=== PATIENT | female | born 1950 | race Caucasian/White ===

== ENCOUNTER → 2019-11-26 | Outpatient (CLI) | payer OTHER, MEDICARE ==
[~2019-11-26] MED LIST: OMNIPAQUE 350 MG/ML, 150 ML BOTTLE ONE
== END | disposition home or self-care (01) ==
LOC: CFH 08:49
PROVIDERS: ATTEND Internal Medicine Cardiovascular Disease
DX: I51.7 Cardiomegaly (principal); I48.91 Unspecified atrial fibrillation
CPT/HCPCS: 71046; 75572; Q9967

== ENCOUNTER 2019-12-02 06:25 | Inpatient (IN) | payer OTHER, MEDICARE ==
[~2019-12-02] VITALS: Ht 157.5 cm; Wt 58.7 kg
[2019-12-02] MEDS ORDERED: SODIUM CHLORIDE 0.9% 1,000 ML IV SCH (06:52)
[2019-12-02] MEDS ORDERED: LIDOCAINE 1%, 20ML ONE (06:55)
[2019-12-02] MEDS ORDERED: SODIUM CHLORIDE 0.9% 1,000 ML IV ONE (07:00)
[2019-12-02] MEDS ORDERED: METO25TA91 PO (07:06)
[2019-12-02] MEDS ORDERED: RIVA20TA PO (07:06)
[2019-12-02] MEDS ORDERED: FLEC150T PO (07:06)
[2019-12-02 07:09] VITALS: BP 121/61
[2019-12-02] MEDS ORDERED: HEPARIN 1,000 UNITS/ML, 30ML ONE (08:36)
[2019-12-02] MEDS ORDERED: ONDANSETRON 2MG/ML, 2ML ONE (08:36)
[2019-12-02] MEDS ORDERED: ROCURONIUM 10 MG/ML,10ML ONE (08:36)
[2019-12-02] MEDS ORDERED: MIDAZOLAM 1 MG/ML, 2ML ONE (08:40)
[2019-12-02] MEDS ORDERED: FENTANYL PF 250 MCG/5ML ONE (08:41)
[2019-12-02] MEDS ORDERED: DEXAMETHASONE 4 MG/ML, 1ML ONE ×2 (08:42→11:47)
[2019-12-02] MEDS ORDERED: PROPOFOL 10 MG/ML, 20ML ONE (11:47)
[2019-12-02] MEDS ORDERED: RIVAROXABAN 20 MG TABLET PO ONE (13:41)
[2019-12-02] MEDS: OMEPRAZOLE 20 MG CAPSULE.DR PO SCH (16:00)
[2019-12-02 20:00] VITALS: BP 92/57
[2019-12-02] MEDS: COLCHICINE 0.6 MG CAPSULE PO SCH (20:12)
[2019-12-02 23:02] VITALS: BP 104/63
[2019-12-03] VITALS (10 sets, daily range): BP systolic 78–111; BP diastolic 49–75
[2019-12-03] MEDS: OMEPRAZOLE 20 MG CAPSULE.DR PO SCH ×2 (05:45→16:08)
[2019-12-03 06:27] LABS: CREATININE 0.75 mg/dL (0.55-1.02)
[2019-12-03] MEDS ORDERED: SOTALOL 80MG TABLET PO SCH (08:30)
[2019-12-03] MEDS: COLCHICINE 0.6 MG CAPSULE PO SCH ×2 (08:35→20:32)
[2019-12-03] MEDS: RIVAROXABAN 20 MG TABLET PO SCH (08:35)
[2019-12-03] MEDS ORDERED: SODIUM CHLORIDE 0.9%, 250ML IVBOLUS ONE (10:30)
[2019-12-03] MEDS: ACETAMINOPHEN 325 MG TABLET PO PRN (13:14)
[2019-12-03] MEDS ORDERED: KETOROLAC 30 MG/1 ML IVPush ONE (16:00)
[2019-12-03] MEDS ORDERED: ALUMINUM/MAG/SIMETHICONE 30 ML UDC PO PRN (16:00)
[2019-12-03] MEDS: SOTALOL 120MG TABLET PO SCH (20:32)
[2019-12-04 00:53] VITALS: BP 96/59
[2019-12-04] MEDS: ZOLPIDEM 5MG TABLET PO PRN ×2 (00:56→21:13)
[2019-12-04 05:13] LABS: BASOPHILS # (AUTO) 0.03 x10^3/uL (0-0.1); BASOPHILS % (AUTO) 0 % (0-1); EOSINOPHILS # (AUTO) 0.05 x10^3/uL (0-0.4); EOSINOPHILS % (AUTO) 1 % (1-7); LYMPHOCYTES # (AUTO) 1.53 x10^3/uL (1-3.4); LYMPHOCYTES % (AUTO) 18 % (22-44); MD NO; MEAN CORPUSCULAR HEMOGLOBIN 32.3 pg (27.0-34.8); MEAN CORPUSCULAR HGB CONC 32.7 g/dL (32.4-35.8); MEAN CORPUSCULAR VOLUME 98.6 fL (80-100); MEAN PLATELET VOLUME 9.8 fL (7.4-10.4); MONOCYTES # (AUTO) 1.27 x10^3/uL (0.2-0.8); MONOCYTES % (AUTO) 15 % (2-9); NEUTROPHILS # (AUTO) 5.53 x10^3/uL (1.8-6.8); NEUTROPHILS % (AUTO) 66 % (42-75); PLATELET COUNT 133 x10^3/uL (130-400); RED BLOOD COUNT 4.22 x10^6/uL (3.82-5.3); RED CELL DISTRIBUTION WIDTH 13.7 % (9.6-15.2)
[2019-12-04 05:25] LABS: ANION GAP 4 mmol/L (5-15); CALCIUM 8.1 mg/dL (8.5-10.1); CHLORIDE 109 mmol/L (98-107)
[2019-12-04 05:26] LABS: CREATININE 0.56 mg/dL (0.55-1.02)
[2019-12-04 05:46] VITALS: BP 120/64
[2019-12-04] MEDS: OMEPRAZOLE 20 MG CAPSULE.DR PO SCH ×2 (05:47→16:59)
[2019-12-04 08:05] VITALS: BP 118/66
[2019-12-04] MEDS: SOTALOL 120MG TABLET PO SCH ×2 (08:26→21:13)
[2019-12-04] MEDS: RIVAROXABAN 20 MG TABLET PO SCH (08:26)
[2019-12-04] MEDS: COLCHICINE 0.6 MG CAPSULE PO SCH ×2 (08:26→21:13)
[2019-12-04] MEDS ORDERED: MAALOX/HYOSCYAMINE/LIDOCAINE 45 ML BTL PO ONE (08:30)
[2019-12-04 13:59] VITALS: BP 108/65
[2019-12-04 19:07] VITALS: BP 107/71
[2019-12-04 21:13] VITALS: BP 116/74
[2019-12-05 00:52] VITALS: BP 114/77
[2019-12-05 05:45] VITALS: BP 107/67
[2019-12-05] MEDS: SOTALOL 120MG TABLET PO SCH (06:00)
[2019-12-05] MEDS: OMEPRAZOLE 20 MG CAPSULE.DR PO SCH ×2 (06:00→17:50)
[2019-12-05 06:52] VITALS: BP 108/68
[2019-12-05] MEDS: RIVAROXABAN 20 MG TABLET PO SCH (09:53)
[2019-12-05] MEDS: COLCHICINE 0.6 MG CAPSULE PO SCH ×2 (09:53→20:56)
[2019-12-05 14:00] VITALS: BP 119/73
[2019-12-05 17:48] VITALS: BP 123/72
[2019-12-05] MEDS: SOTALOL 80MG TABLET PO SCH (17:50)
[2019-12-05 20:52] VITALS: BP 138/80
[2019-12-05] MEDS: ZOLPIDEM 5MG TABLET PO PRN (21:06)
[2019-12-06 01:51] VITALS: BP 125/78
[2019-12-06 05:50] VITALS: BP 112/71
[2019-12-06] MEDS: SOTALOL 80MG TABLET PO SCH ×2 (05:51→17:09)
[2019-12-06] MEDS: OMEPRAZOLE 20 MG CAPSULE.DR PO SCH ×2 (05:51→17:09)
[2019-12-06 08:12] VITALS: BP 123/70
[2019-12-06] MEDS: RIVAROXABAN 20 MG TABLET PO SCH ×3 (09:24→14:17)
[2019-12-06] MEDS: COLCHICINE 0.6 MG CAPSULE PO SCH ×2 (09:24→20:59)
[2019-12-06 20:56] VITALS: BP 130/66
[2019-12-06] MEDS: ZOLPIDEM 5MG TABLET PO PRN (21:02)
[2019-12-07 01:22] VITALS: BP 110/71
[2019-12-07] MEDS: OMEPRAZOLE 20 MG CAPSULE.DR PO SCH ×2 (06:15→15:07)
[2019-12-07] MEDS: SOTALOL 80MG TABLET PO SCH ×2 (06:15→18:29)
[2019-12-07 08:05] VITALS: BP 112/64
[2019-12-07] MEDS: COLCHICINE 0.6 MG CAPSULE PO SCH ×2 (08:12→19:36)
[2019-12-07] MEDS ORDERED: SODIUM CHLORIDE 0.9% 1,000 ML IV SCH (11:00)
[2019-12-07] MEDS ORDERED: MIDAZOLAM 1 MG/ML, 5ML ONE (13:21)
[2019-12-07] MEDS ORDERED: BIVALIRUDIN 250 MG ONE (13:21)
[2019-12-07] MEDS ORDERED: FENTANYL PF 100 MCG/2ML ONE (13:21)
[2019-12-07] MEDS ORDERED: TICAGRELOR 90 MG TABLET ONE (13:21)
[2019-12-07] MEDS ORDERED: LIDOCAINE 2%, 20ML ONE (13:21)
[2019-12-07] MEDS ORDERED: VERAPAMIL 2.5 MG/ML, 2ML ONE (13:21)
[2019-12-07 14:35] VITALS: BP 136/77
[2019-12-07] MEDS: SODIUM CHLORIDE 0.9% 1,000 ML IV SCH ×3 (14:47→19:12)
[2019-12-07 16:23] VITALS: BP 112/68
[2019-12-07] MEDS: ACETAMINOPHEN 325 MG TABLET PO PRN (18:30)
[2019-12-07 19:23] VITALS: BP 112/69
[2019-12-08 03:26] VITALS: BP 128/76
[2019-12-08] MEDS: OMEPRAZOLE 20 MG CAPSULE.DR PO SCH (05:57)
[2019-12-08] MEDS: SOTALOL 80MG TABLET PO SCH (05:57)
[2019-12-08 07:08] VITALS: BP 118/53
[2019-12-08] MEDS: COLCHICINE 0.6 MG CAPSULE PO SCH (08:24)
[2019-12-08] MEDS: RIVAROXABAN 20 MG TABLET PO SCH (08:24)
[2019-12-08] MEDS ORDERED: COLC0.6C3 PO (08:26)
[2019-12-08] MEDS ORDERED: SOTA80TA18 PO (08:26)
== END 2019-12-08 11:00 | disposition home or self-care (01) | DRG 274 ==
LOC: CACL 06:25 → OBSVTOIN 12:57 → ORIP 12:57 → INTOOBSV 12:57 → 5SO 14:57 → DCLOUNGE 12-08 10:50
PROVIDERS: ADMIT Internal Medicine Cardiovascular Disease; ATTEND Internal Medicine Cardiovascular Disease
PROC: 4A0234Z Measurement of Cardiac Electrical Activity, Percutaneous Approach (ICD-10-PCS; 2019-12-02)
PROC: 02583ZZ Destruction of Conduction Mechanism, Percutaneous Approach (ICD-10-PCS; principal; 2019-12-02 08:00)
PROC: 4A023N7 Measurement of Cardiac Sampling and Pressure, Left Heart, Percutaneous Approach (ICD-10-PCS; 2019-12-07)
PROC: B2111ZZ Fluoroscopy of Multiple Coronary Arteries using Low Osmolar Contrast (ICD-10-PCS; 2019-12-07)
DX: I48.4 Atypical atrial flutter (principal); I31.9 Disease of pericardium, unspecified; D68.69 Other thrombophilia; I48.0 Paroxysmal atrial fibrillation; I42.9 Cardiomyopathy, unspecified; R13.10 Dysphagia, unspecified; Z20.828 Contact with and (suspected) exposure to other viral communicable diseases; Z79.899 Other long term (current) drug therapy
CPT/HCPCS: 36415; 93458; 93613; 93655; 93656; 93657; 93662; J3490; 80048; 82565; 85025; 85347; 87635; 93005; 93306; 93312; 93321; 93325; 99156; C1732; C1766; C1769; C1893; C1894; G0378; J0583; J1100; J1644; J1885; J2250; J2405; J2704; J3010; C1730; C1759; J7050; Q9967

== ENCOUNTER → 2020-09-08 | Outpatient (CLI) | payer MEDICARE, OTHER ==
[~2020-09-08] MED LIST changes: +COLC0.6C3 PO; +FLEC150T PO; +METO25TA91 PO; -OMNIPAQUE 350 MG/ML, 150 ML BOTTLE ONE; +RIVA20TA PO; +SOTA80TA18 PO
== END | disposition home or self-care (01) ==
LOC: CFH 10:45
PROVIDERS: ATTEND Internal Medicine Cardiovascular Disease
DX: I08.0 Rheumatic disorders of both mitral and aortic valves (principal); I48.91 Unspecified atrial fibrillation
CPT/HCPCS: 93306